=== PATIENT | female | born 2000 | race Caucasian/White ===

== ENCOUNTER 2020-10-10 19:12 | Emergency (ER) | payer BC ==
[~2020-10-10] VITALS: Ht 162.6 cm; Wt 63.6 kg
[2020-10-10 19:17] VITALS: TEMP 98.1
[2020-10-10 20:41] LABS: MUCOUS Present /lpf; PH 5 (5-8); SQUAMOUS EPITHELIAL 0-2 /hpf; URINE APPEARANCE Clear; URINE BACTERIA None Seen /hpf; URINE BILIRUBIN Negative (NEGATIVE); URINE BLOOD 1+ (NEGATIVE); URINE COLOR Yellow; URINE GLUCOSE Negative (NEGATIVE); URINE KETONE Trace (NEGATIVE); URINE LEUKOCYTE ESTERASE Negative (NEGATIVE); URINE NITRATE Negative (NEGATIVE); URINE PROTEIN(semi-quant) Negative (NEGATIVE); URINE RBC 0-2 /hpf; URINE UROBILINOGEN Negative (NEGATIVE); URINE WBC 0-2 /hpf
[2020-10-10 20:50] LABS: COLLECTION METHOD CLEAN CATCH
[2020-10-10 21:00] VITALS: BP 114/70; PULSE 66
== END 2020-10-10 21:00 | disposition home or self-care (01) ==
LOC: COL.ER 19:12
PROVIDERS: Nurse Practitioner Primary Care
DX: N90.89 Other specified noninflammatory disorders of vulva and perineum (principal); Z32.02 Encounter for pregnancy test, result negative